=== PATIENT | male | born 1950 ===

== ENCOUNTER 2020-07-10 09:03 | Emergency (ER) | payer OTHER ==
[2020-07-10 09:31] VITALS: BP 132/70
[2020-07-10] MEDS ORDERED: ASPIRIN 325 MG TABLET PO ONE (12:04)
--- NOTE | 2020-07-10 12:04 | ER Document Report ---
ED General - General Chief Complaint: Leg Swelling Stated Complaint: LIPS TINGLING,LEFT ARM PAIN Time Seen by Provider: 07/10/20 11:35 [facility] Care Provider: [facility] [[facility]] - Follow up as needed TRAVEL OUTSIDE OF THE [place] IN LAST 30 DAYS: No - HPI Onset: Other - 2 days ago Onset/Duration: Gradual Quality of pain: No pain Associated symptoms: Leg swelling. denies: Chest pain, Productive cough, Fever, Hurts to breath Exacerbated by: Denies Relieved by: Denies Similar symptoms previously: Yes Notes: Patient is a 69-year-old male with a past medical history of 2 cardiac stent placements and hypertension who presents with left leg swelling and tingling around his mouth. He states that the last time the symptoms happened, he had a cardiac stent placed. [facility] [place]. He is only in town seasonally as he is retired. He does have a endbander in [place] he sometimes sees but mainly all of his care is in [place]. He went to [facility] today and wanted to have his blood pressure checked because of the symptoms he was having. They referred him to the ED and stated they were unable to do anything there for him due to his cardiac history. He states he is not having any chest pain or back pain. He does have some swelling of his left leg. He had this worked up previously when this happened and there was no DVT. He has never had a blood clot. He states that the tingling around his mouth and the leg swelling previously indicated that he needed a cardiac stent placed. States he has had a stress test and echo about 4 years ago. He is refusing any lab work at all. He did have an EKG. He only wanted his blood pressure checked. States his is already calling the endbander in [place] and he will be there within the week. He states he could also call his endbander in [place] if needed. Patient is absolutely refusing any further work-up in the ER. - Related Data Allergies/Adverse Reactions: codeine Allergy (Verified 12/21/18 10:05) SWELLING HIVES morphine Allergy (Verified 12/21/18 10:05) Seizures oxycodone [From Percocet] Allergy (Verified 12/21/18 10:05) SWELLING, HIVES Past Medical History - General Information source: Patient - Social History Smoking Status: Current Every Day Smoker Family History: Reviewed & Not Pertinent - Past Medical History Cardiac Medical History: Reports: Hx Heart Attack - 2000, Hx Hypertension Pulmonary Medical History: Denies: Hx Asthma Neurological Medical History: Denies: Hx Cerebrovascular Accident, Hx Seizures GI Medical History: Denies: Hx Hepatitis, Hx Hiatal Hernia, Hx Ulcer Infectious Medical History: Denies: Hx Hepatitis Past Surgical History: Denies: Hx Open Heart Surgery, Hx Pacemaker Review of Systems - Review of Systems Notes: CONSTITUTIONAL: No fever, fatigue or weight loss. SKIN: No rash. HENT: No congestion, ear pain, or sore throat. EYES: No recent vision problems or eye pain. ENDOCRINE: No polyuria or polydipsia. CARDIOVASCULAR: No chest pain or edema. RESPIRATORY: No cough, shortness of breath, congestion, or wheezing. GASTROINTESTINAL: No abdominal pain, nausea, vomiting, bloody stools or diarrhea. MUSCULOSKELETAL: No joint pain. Positive for swelling of left leg. LYMPHATIC: No swollen glands. NEUROLOGIC: No seizures. No headache, focal weakness or sensory changes. Positive for tingling around lips. HEMATOLOGIC: No unusual bruising or bleeding. PSYCHIATRIC: No depression or anxiety. Physical Exam - Vital signs Vitals: Temp Pulse Resp BP Pulse Ox 98.3 F 64 16 132/70 H 97 07/10/20 09:30 07/10/20 09:30 07/10/20 09:30 07/10/20 09:30 07/10/20 09:30 - Notes Notes: VITAL SIGNS: Within normal limits. GENERAL: No acute distress, non-toxic appearance. HEAD: Normal with no signs of head trauma. EYES: EOMI, conjunctiva normal, no discharge. EARS: Hearing grossly intact. NOSE: Normal. NECK: Normal range of motion, no tenderness, supple, no lymphadenopathy, No adenopathy, no JVD. CHEST: Clear breath sounds bilaterally. No wheezes, rales, or rhonchi. CARDIAC: Regular rate and rhythm. S1 and S2, without murmurs, gallops, or rubs. VASCULAR: Peripheral pulses normal and equal in all extremities. Minimal non pitting edema in left lower extremity. ABDOMEN: Normal and soft with no tenderness. GENITOURINARY: Normal, No tenderness LYMPATHTIC: No lymphadenopathy noted. MUSCULOSKELETAL: Good range of motion of all major joints. NEUROLOGICAL: Alert and oriented x 3. No focal sensory or strength deficits. Speech normal. Follows commands appropriately. PSYCHIATRIC: Normal Affect, judgement and mood. SKIN: Normal appearance with no rashes or lesions. Course - Re-evaluation Re-evalutation: 07/10/20 12:28 I had an extensive conversation with the patient. He is absolutely refusing any blood work including a troponin or chest x-ray or any other work-up. I had a long conversation with him about the risks of not obtaining the blood work or a full cardiac work-up while in the ED including . I informed him that I am unable to tell him if he has an acute cardiac condition without the proper work- up. He verbalized understanding. He states that he is already called his endbander in [place] and can be there within the week. He also has a endbander in [place] he can call if he needs to. I informed him that this would have to be AMA discharge because he is refusing a Doppler ultrasound of his lower leg as well as a full cardiac work-up. Patient verbalized understanding to this. He states that he took 1 baby aspirin at home. I have ordered him 3 more. I told the patient that he needs to come back immediately if any of his symptoms return or worsen. I believe that patient has capacity to make medical decisions. His vitals are within normal limits. He will be discharged AMA. - Vital Signs Vital signs: Temp Pulse Resp BP Pulse Ox 98.3 F 64 16 132/70 H 99 07/10/20 09:30 07/10/20 09:30 07/10/20 10:00 07/10/20 09:30 07/10/20 10:00 - EKG Interpretation by Me EKG shows normal: Sinus rhythm Rate: Normal Rhythm: NSR When compared to previous EKG there are: Previous EKG unavailable Additional EKG results interpreted by me: 07/10/20 12:27 EKG interpreted by me. Sinus rhythm at a rate of 62. QTc 407. No acute ST changes. Artifact present. No previous EKG available for comparison. 07/10/20 12:28 Discharge - Discharge Clinical Impression: Left leg swelling Condition: Stable Disposition: AGAINST MEDICAL ADVICE Instructions: Chest Pain of Unclear Cause ([facility]) Additional Instructions: Please call your endbander for follow-up. Please return immediately to the ER for any chest pain, nausea, lightheadedness, or any other symptoms. Referrals: [facility] [Primary [facility] Provider] - Follow up as needed
--- NOTE | 2020-07-10 12:57 | EKG REPORT ---
SEVERITY:- ABNORMAL ECG - CONSIDER OLD ANTEROSEPTAL HI. SINUS RHYTHM : Confirmed by: Pan Mesa MD 10-Jul-2020 12:56:59
== END 2020-07-10 12:08 | disposition left against medical advice (07) ==
LOC: ER 09:03
DX: M79.89 Other specified soft tissue disorders (principal); M79.602 Pain in left arm; R20.2 Paresthesia of skin; F17.200 Nicotine dependence, unspecified, uncomplicated; I10 Essential (primary) hypertension; I25.2 Old myocardial infarction
CPT/HCPCS: 93005; 93010; 99283